=== PATIENT | female | born 1975 | race Caucasian/White ===

== ENCOUNTER 2020-06-14 10:07 | Inpatient (IN) | payer OTHER ==
[~2020-06-14] VITALS: Ht 165.1 cm; Wt 87.7 kg
[2020-06-14 11:23] LABS: Basophils # (auto) 0 10 ^3/uL (0-0.2); Basophils % (auto) 0.1 % (0.0-2.0); Eosinophils # (auto) 0 10 ^3/uL (0-0.8); Eosinophils % (auto) 0.4 % (0.0-7.0); Hemoglobin 11.9 g/dL (12.2-16.2); Mean Corpuscular Hgb Conc. 33.1 g/dL (32.0-36.0); Mean Corpuscular Volume 81.5 fL (80.0-100.0)
[2020-06-14 11:25] LABS: Hematocrit 36.1 % (36.0-46.0); Lymphocytes # (auto) 0.8 10 ^3/uL (0.4-5.4); Monocytes # (auto) 0.7 10 ^3/uL (0-1.3); Monocytes % (auto) 7.8 % (0.0-12.0); Neutrophils % (auto) 82.7 % (37.0-80.0); Red Blood Cells 4.43 10^6/uL (4.0-5.20); Red Cell Distribution Width 15.3 % (11.8-14.3); White Blood Cell 8.4 10^3/uL (4.4-10.8)
[2020-06-14 11:35] LABS: Albumin 2.8 g/dL (3.4-5.0); Anion Gap 5 (5-15); Blood Urea Nitrogen 9 mg/dL (7-18); Calcium 8.3 mg/dL (8.5-10.1); Carbon Dioxide 29 mmol/L (21-32); Chloride 104 mmol/L (98-107); Glucose 114 mg/dL (74-106); Potassium 3.4 mmol/L (3.5-5.1); Sodium 138 mmol/L (136-145)
[2020-06-14 11:48] LABS: Alanine Aminotransferase 37 U/L (13-56); Alkaline Phosphatase 62 U/L (45-117); Aspartate Aminotransferase 39 U/L (15-37); BUN/Creatinine Ratio 12.9; Bilirubin, Total 0.4 mg/dL (0.2-1.0); CRP High Sensitivity 5.33 mg/dL (< 0.3); GFR African American 116 mL/min; GFR Non-African American 96 mL/min; Lactate Dehydrogenase 348 U/L (84-246); Total Protein 7.4 g/dL (6.4-8.2)
[2020-06-14] MEDS ORDERED: PRED20TA2 PO (13:39)
[2020-06-14] MEDS ORDERED: ASCO500T11 PO (13:39)
[2020-06-14] MEDS ORDERED: ZINC50TA7 PO (13:39)
[2020-06-14] MEDS ORDERED: ALBUAER3 IN (13:39)
[2020-06-14] MEDS ORDERED: [UNRECOGNIZED DRUG - CODE] PO (13:41)
[2020-06-14] MEDS ORDERED: MORPHINE SULFATE INJECTION 2 MG/ML SYRG IV PRN ×3 (14:15→19:15)
[2020-06-14] MEDS ORDERED: NITROGLYCERIN 0.4 MG SL TAB SL PRN ×2 (14:15→19:15)
[2020-06-14] MEDS ORDERED: LORazepam 0.5 MG TAB PO PRN (19:15)
[2020-06-14] MEDS ORDERED: ONDANSETRON HCL 4 MG/2 ML VIAL IV PRN (19:15)
[2020-06-14] MEDS ORDERED: HYDROcodone-ACET 5/325MG TAB PO PRN (19:15)
[2020-06-14] MEDS ORDERED: ALUM & MAG HYDROX-SIMETH LIQ(MAALOX) 30 ML PO PRN (19:15)
[2020-06-14] MEDS ORDERED: REMDESIVIR PER PHARMACY 0 ML IV SCH (19:15)
[2020-06-14] MEDS ORDERED: DOCUSATE SOD 100 MG CAP PO PRN (19:15)
[2020-06-14] MEDS ORDERED: ACETAMINOPHEN 500 MG TAB PO PRN (19:15)
[2020-06-14 21:58] LABS: Basophils # (auto) 0 10 ^3/uL (0-0.2); Basophils % (auto) 0.2 % (0.0-2.0); Eosinophils # (auto) 0.1 10 ^3/uL (0-0.8); Monocytes # (auto) 0.6 10 ^3/uL (0-1.3)
[2020-06-14 21:59] LABS: Hematocrit 34.8 % (36.0-46.0); Hemoglobin 11.5 g/dL (12.2-16.2); Lymphocytes # (auto) 1.2 10 ^3/uL (0.4-5.4); Mean Corpuscular Hemoglobin 26.9 pg (28.0-32.0); Mean Corpuscular Hgb Conc. 33.1 g/dL (32.0-36.0); Mean Corpuscular Volume 81.4 fL (80.0-100.0); Neutrophils # (auto) 5.9 10 ^3/uL (1.6-8.6); Neutrophils % (auto) 75.8 % (37.0-80.0); Nucleated Red Blood Cells % 0.1 %; Red Blood Cells 4.28 10^6/uL (4.0-5.20); Red Cell Distribution Width 15.2 % (11.8-14.3); White Blood Cell 7.8 10^3/uL (4.4-10.8)
[2020-06-14] MEDS: BUDESONIDE (INHALATION) 180 MCG IH IN SCH (22:00)
[2020-06-14 22:13] LABS: Albumin 2.8 g/dL (3.4-5.0); Calcium 8.1 mg/dL (8.5-10.1); Magnesium 2.2 mg/dL (1.6-2.6); Potassium 3.6 mmol/L (3.5-5.1)
[2020-06-14 22:19] LABS: Cholesterol 84 mg/dL (< 200); HDL Cholesterol 35 mg/dL (40-59); LDL Cholesterol 42 mg/dL (< 100); Triglycerides 55 mg/dL (< 150)
[2020-06-14 22:21] LABS: BUN/Creatinine Ratio 17.2; Bilirubin, Total 0.3 mg/dL (0.2-1.0); CRP High Sensitivity 5.2 mg/dL (< 0.3); Total Protein 7.3 g/dL (6.4-8.2)
[2020-06-14] MEDS: DOXYCYCLINE 100MG/250ML 250 ML IV SCH (22:30)
[2020-06-14] MEDS: ENOXAPARIN SOD 40 MG/0.4 ML SYRINGE SC SCH (22:30)
[2020-06-14] MEDS: FAMOTIDINE (10MG/ML) 2ML VL IV SCH (22:30)
[2020-06-15] MEDS: BUDESONIDE (INHALATION) 180 MCG IH IN SCH ×2 (06:40→18:51)
[2020-06-15] MEDS: ALBUTEROL SULF HFA 90MCG INH 200DOSE IN PRN ×2 (06:40→18:52)
[2020-06-15 08:45] LABS: Basophils # (auto) 0 10 ^3/uL (0-0.2); Eosinophils # (auto) 0.2 10 ^3/uL (0-0.8); Lymphocytes # (auto) 1.3 10 ^3/uL (0.4-5.4); Neutrophils # (auto) 3.5 10 ^3/uL (1.6-8.6); Nucleated Red Blood Cells % 0.1 %
[2020-06-15 08:46] LABS: Basophils % (auto) 0.2 % (0.0-2.0); Eosinophils % (auto) 2.7 % (0.0-7.0); Hematocrit 34.6 % (36.0-46.0); Hemoglobin 11.6 g/dL (12.2-16.2); Lymphocytes % (auto) 22.6 % (10.0-50.0); Mean Corpuscular Hemoglobin 27.2 pg (28.0-32.0); Mean Corpuscular Hgb Conc. 33.4 g/dL (32.0-36.0); Mean Corpuscular Volume 81.4 fL (80.0-100.0); Monocytes # (auto) 0.7 10 ^3/uL (0-1.3); Monocytes % (auto) 12.4 % (0.0-12.0); Neutrophils % (auto) 62.1 % (37.0-80.0); Red Blood Cells 4.25 10^6/uL (4.0-5.20); Red Cell Distribution Width 15.5 % (11.8-14.3); White Blood Cell 5.7 10^3/uL (4.4-10.8)
[2020-06-15 08:47] LABS: INR 0.93 (0.9-1.15); Partial Thromboplastin Time 27.6 sec (23.0-31.2)
[2020-06-15 09:05] LABS: Potassium 3.5 mmol/L (3.5-5.1)
[2020-06-15 09:12] LABS: Albumin 2.7 g/dL (3.4-5.0); Bilirubin, Total 0.4 mg/dL (0.2-1.0); Calcium 8.4 mg/dL (8.5-10.1); Magnesium 2.4 mg/dL (1.6-2.6); Phosphorus 3.1 mg/dL (2.5-4.90); Total Protein 7.2 g/dL (6.4-8.2)
[2020-06-15] MEDS ORDERED: IVERMECTIN 3 MG TAB PO ONE (10:00)
[2020-06-15] MEDS: DexAMETHasone SOD PHOS 10MG/1ML VIAL INJ IV SCH (10:17)
[2020-06-15] MEDS: FAMOTIDINE (10MG/ML) 2ML VL IV SCH (10:19)
[2020-06-15] MEDS: ZINC SULFATE 220mg CAP or TAB PO SCH (10:19)
[2020-06-15] MEDS: DOXYCYCLINE 100MG/250ML 250 ML IV SCH ×2 (10:19→21:16)
[2020-06-15] MEDS: ASCORBIC ACID 1,000 MG TAB PO SCH (10:19)
[2020-06-15] MEDS: CHOLECALCIFEROL (VITD3) 2,000 UNIT CAP/TAB PO SCH (10:20)
[2020-06-15] MEDS: ENOXAPARIN SOD 40 MG/0.4 ML SYRINGE SC SCH ×2 (10:20→21:15)
[2020-06-15] MEDS ORDERED: diphenhdrAMINE HCL 50 MG/1 ML VL IV PRN (11:30)
[2020-06-15 15:00] VITALS: BP 120/90
[2020-06-15] MEDS ORDERED: REMDESIVIR 200 MG in NS 210ml LOADING DOSE ADULT IV ONE (15:00)
[2020-06-15 16:00] VITALS: BP 148/83
[2020-06-15] MEDS: FAMOTIDINE 20 MG TAB PO SCH (21:15)
[2020-06-15 23:38] VITALS: BP 141/75
[2020-06-15 23:47] VITALS: BP 129/72
[2020-06-15 23:55] VITALS: BP 139/81
[2020-06-16 01:31] VITALS: BP 133/68
[2020-06-16 06:02] LABS: Potassium 3.9 mmol/L (3.5-5.1)
[2020-06-16 06:21] LABS: Albumin 2.7 g/dL (3.4-5.0); BUN/Creatinine Ratio 21.6; Bilirubin, Total 0.3 mg/dL (0.2-1.0); Calcium 8.7 mg/dL (8.5-10.1); Total Protein 7.2 g/dL (6.4-8.2)
[2020-06-16] MEDS: BUDESONIDE (INHALATION) 180 MCG IH IN SCH ×2 (07:25→18:53)
[2020-06-16] MEDS: ALBUTEROL SULF HFA 90MCG INH 200DOSE IN PRN ×2 (07:26→18:53)
[2020-06-16 08:00] VITALS: BP 149/71
[2020-06-16] MEDS: DexAMETHasone SOD PHOS 10MG/1ML VIAL INJ IV SCH (09:06)
[2020-06-16] MEDS: DOXYCYCLINE 100MG/250ML 250 ML IV SCH ×2 (09:07→21:11)
[2020-06-16] MEDS: ZINC SULFATE 220mg CAP or TAB PO SCH (09:07)
[2020-06-16] MEDS: FAMOTIDINE 20 MG TAB PO SCH ×2 (09:07→21:10)
[2020-06-16] MEDS: CHOLECALCIFEROL (VITD3) 2,000 UNIT CAP/TAB PO SCH (09:08)
[2020-06-16] MEDS: ASCORBIC ACID 1,000 MG TAB PO SCH (09:08)
[2020-06-16] MEDS: ENOXAPARIN SOD 40 MG/0.4 ML SYRINGE SC SCH ×2 (09:08→21:11)
[2020-06-16 14:00] VITALS: BP 154/88
[2020-06-16] MEDS: REMDESIVIR 100mg 100 MG in SODIUM CHL 0.9% 230 ML IV SCH (14:04)
[2020-06-16 14:15] VITALS: BP 150/82
[2020-06-16 15:00] VITALS: BP 148/84
[2020-06-16 16:00] VITALS: BP 138/84
[2020-06-17] VITALS: BP 157/78
[2020-06-17 06:29] LABS: Potassium 3.6 mmol/L (3.5-5.1)
[2020-06-17 06:43] LABS: BUN/Creatinine Ratio 26.4
[2020-06-17 06:44] LABS: Albumin 2.6 g/dL (3.4-5.0); Bilirubin, Total 0.2 mg/dL (0.2-1.0); Calcium 8.3 mg/dL (8.5-10.1)
[2020-06-17] MEDS: BUDESONIDE (INHALATION) 180 MCG IH IN SCH ×2 (06:52→19:40)
[2020-06-17 08:00] VITALS: BP 139/84
[2020-06-17] MEDS: DexAMETHasone SOD PHOS 10MG/1ML VIAL INJ IV SCH (10:51)
[2020-06-17] MEDS: DOXYCYCLINE 100MG/250ML 250 ML IV SCH ×2 (10:51→22:40)
[2020-06-17] MEDS: ASCORBIC ACID 1,000 MG TAB PO SCH (10:52)
[2020-06-17] MEDS: FAMOTIDINE 20 MG TAB PO SCH ×2 (10:52→22:40)
[2020-06-17] MEDS: ZINC SULFATE 220mg CAP or TAB PO SCH (10:52)
[2020-06-17] MEDS: ENOXAPARIN SOD 40 MG/0.4 ML SYRINGE SC SCH ×2 (10:53→22:40)
[2020-06-17] MEDS: CHOLECALCIFEROL (VITD3) 2,000 UNIT CAP/TAB PO SCH (10:53)
[2020-06-17 14:30] VITALS: BP 138/86
[2020-06-17] MEDS: REMDESIVIR 100mg 100 MG in SODIUM CHL 0.9% 230 ML IV SCH (14:30)
[2020-06-17 14:45] VITALS: BP 128/87
[2020-06-17 15:45] VITALS: BP 137/92
[2020-06-17 16:45] VITALS: BP 134/83
[2020-06-17] MEDS: ALBUTEROL SULF HFA 90MCG INH 200DOSE IN PRN (19:40)
[2020-06-18] VITALS: BP 146/97
[2020-06-18 05:44] LABS: Basophils # (auto) 0 10 ^3/uL (0-0.2); Eosinophils # (auto) 0 10 ^3/uL (0-0.8); Hemoglobin 11.6 g/dL (12.2-16.2); Lymphocytes # (auto) 1.5 10 ^3/uL (0.4-5.4); Mean Corpuscular Hemoglobin 26.8 pg (28.0-32.0)
[2020-06-18 05:46] LABS: Basophils % (auto) 0.1 % (0.0-2.0); Mean Corpuscular Hgb Conc. 33.1 g/dL (32.0-36.0); Monocytes % (auto) 8.9 % (0.0-12.0); Neutrophils # (auto) 8.9 10 ^3/uL (1.6-8.6); Red Blood Cells 4.32 10^6/uL (4.0-5.20); Red Cell Distribution Width 15.3 % (11.8-14.3); White Blood Cell 11.4 10^3/uL (4.4-10.8)
[2020-06-18 06:16] LABS: Albumin 2.8 g/dL (3.4-5.0); BUN/Creatinine Ratio 21.7; Bilirubin, Total 0.3 mg/dL (0.2-1.0); Calcium 8.5 mg/dL (8.5-10.1); Total Protein 7.1 g/dL (6.4-8.2)
[2020-06-18] MEDS: BUDESONIDE (INHALATION) 180 MCG IH IN SCH ×2 (07:42→22:00)
[2020-06-18] MEDS: ALBUTEROL SULF HFA 90MCG INH 200DOSE IN PRN ×2 (07:43→22:32)
[2020-06-18 08:00] VITALS: BP 164/92
[2020-06-18] MEDS: DexAMETHasone SOD PHOS 10MG/1ML VIAL INJ IV SCH (10:03)
[2020-06-18] MEDS: ZINC SULFATE 220mg CAP or TAB PO SCH (10:04)
[2020-06-18] MEDS: DOXYCYCLINE 100MG/250ML 250 ML IV SCH ×2 (10:04→22:00)
[2020-06-18] MEDS: ASCORBIC ACID 1,000 MG TAB PO SCH (10:05)
[2020-06-18] MEDS: FAMOTIDINE 20 MG TAB PO SCH ×2 (10:05→22:00)
[2020-06-18] MEDS: CHOLECALCIFEROL (VITD3) 2,000 UNIT CAP/TAB PO SCH (10:06)
[2020-06-18] MEDS: ENOXAPARIN SOD 40 MG/0.4 ML SYRINGE SC SCH ×2 (10:06→22:00)
[2020-06-18] MEDS: REMDESIVIR 100mg 100 MG in SODIUM CHL 0.9% 230 ML IV SCH (14:06)
[2020-06-18 14:15] VITALS: BP 138/80
[2020-06-18 14:30] VITALS: BP 145/85
[2020-06-18 15:15] VITALS: BP 140/89
[2020-06-18 16:00] VITALS: BP 158/98
[2020-06-19] VITALS: BP 135/90
[2020-06-19] MEDS: BUDESONIDE (INHALATION) 180 MCG IH IN SCH ×2 (06:52→20:38)
[2020-06-19] MEDS: ALBUTEROL SULF HFA 90MCG INH 200DOSE IN PRN ×2 (06:52→20:38)
[2020-06-19 07:30] LABS: Basophils # (auto) 0 10 ^3/uL (0-0.2); Basophils % (auto) 0.2 % (0.0-2.0); Eosinophils # (auto) 0 10 ^3/uL (0-0.8); Nucleated Red Blood Cells % 0.1 %
[2020-06-19 07:32] LABS: Eosinophils % (auto) 0.3 % (0.0-7.0); Hematocrit 35.9 % (36.0-46.0); Lymphocytes # (auto) 2.3 10 ^3/uL (0.4-5.4); Lymphocytes % (auto) 18.2 % (10.0-50.0); Mean Corpuscular Hgb Conc. 33.4 g/dL (32.0-36.0); Mean Corpuscular Volume 80.8 fL (80.0-100.0); Monocytes # (auto) 1.2 10 ^3/uL (0-1.3); Monocytes % (auto) 9.5 % (0.0-12.0); Neutrophils % (auto) 71.8 % (37.0-80.0); Red Blood Cells 4.45 10^6/uL (4.0-5.20); Red Cell Distribution Width 15.2 % (11.8-14.3); White Blood Cell 12.6 10^3/uL (4.4-10.8)
[2020-06-19 07:49] LABS: Albumin 2.8 g/dL (3.4-5.0); Calcium 8.6 mg/dL (8.5-10.1); Potassium 3.8 mmol/L (3.5-5.1)
[2020-06-19 07:52] LABS: BUN/Creatinine Ratio 25.4; Bilirubin, Total 0.3 mg/dL (0.2-1.0)
[2020-06-19 08:00] VITALS: BP 130/84
[2020-06-19] MEDS: DexAMETHasone SOD PHOS 10MG/1ML VIAL INJ IV SCH (10:00)
[2020-06-19] MEDS: DOXYCYCLINE 100MG/250ML 250 ML IV SCH (10:00)
[2020-06-19] MEDS: ZINC SULFATE 220mg CAP or TAB PO SCH (10:00)
[2020-06-19] MEDS: CHOLECALCIFEROL (VITD3) 2,000 UNIT CAP/TAB PO SCH (10:01)
[2020-06-19] MEDS: ASCORBIC ACID 1,000 MG TAB PO SCH (10:01)
[2020-06-19] MEDS: FAMOTIDINE 20 MG TAB PO SCH ×2 (10:01→21:37)
[2020-06-19] MEDS: ENOXAPARIN SOD 40 MG/0.4 ML SYRINGE SC SCH ×2 (10:02→21:37)
[2020-06-19] MEDS: REMDESIVIR 100mg 100 MG in SODIUM CHL 0.9% 230 ML IV SCH (14:00)
[2020-06-19 15:00] VITALS: BP 124/79
[2020-06-19 15:15] VITALS: BP 127/82
[2020-06-19 16:00] VITALS: BP 120/77
[2020-06-20] VITALS: BP 120/75
[2020-06-20] MEDS: ALBUTEROL SULF HFA 90MCG INH 200DOSE IN PRN (07:35)
[2020-06-20] MEDS: BUDESONIDE (INHALATION) 180 MCG IH IN SCH (07:35)
[2020-06-20 08:00] VITALS: BP 136/87
[2020-06-20] MEDS: FAMOTIDINE 20 MG TAB PO SCH (09:17)
[2020-06-20] MEDS: ZINC SULFATE 220mg CAP or TAB PO SCH (09:17)
[2020-06-20] MEDS: DexAMETHasone SOD PHOS 10MG/1ML VIAL INJ IV SCH (09:17)
[2020-06-20] MEDS: CHOLECALCIFEROL (VITD3) 2,000 UNIT CAP/TAB PO SCH (09:18)
[2020-06-20] MEDS: ENOXAPARIN SOD 40 MG/0.4 ML SYRINGE SC SCH (09:18)
[2020-06-20] MEDS: ASCORBIC ACID 1,000 MG TAB PO SCH (09:18)
[2020-06-20] MEDS ORDERED: ALBUAER3 IN (14:52)
[2020-06-20] MEDS ORDERED: PANT40TA2 PO (14:52)
[2020-06-20] MEDS ORDERED: CHOL20007 PO (14:52)
[2020-06-20] MEDS ORDERED: ASPI81CH43 PO (14:52)
[2020-06-20] MEDS ORDERED: METH4PAK PO (14:52)
[2020-06-20 16:00] VITALS: BP 136/97
== END 2020-06-20 17:50 | disposition home or self-care (01) | DRG 177 ==
LOC: EDBD 10:07 → ER 10:07 → TELE 10:08 → TELE-WESTW 06-15 14:50
PROVIDERS: ADMIT Hospitalist; ATTEND Internal Medicine
PROC: XW13325 Transfusion of Convalescent Plasma (Nonautologous) into Peripheral Vein, Percutaneous Approach, New Technology Group 5 (ICD-10-PCS; principal; 2020-06-15)
PROC: XW033E5 Introduction of Remdesivir Anti-infective into Peripheral Vein, Percutaneous Approach, New Technology Group 5 (ICD-10-PCS; 2020-06-15)
DX: U07.1 COVID-19 (principal); J12.82 Pneumonia due to coronavirus disease 2019; J96.01 Acute respiratory failure with hypoxia; E78.5 Hyperlipidemia, unspecified; E66.01 Morbid (severe) obesity due to excess calories; J45.909 Unspecified asthma, uncomplicated; D64.9 Anemia, unspecified; R73.03 Prediabetes; Z68.33 Body mass index [BMI] 33.0-33.9, adult
CPT/HCPCS: 36415; 36600; 71045; 80053; 80061; 82306; 82728; 82805; 83036; 83605; 83615; 83735; 83880; 84100; 84443; 84484; 85025; 85379; 85610; 85730; 86141; 86850; 86900; 86901; 87040; 87426; 93005; 94640; 99291; G0378; J1100; J3490